=== PATIENT | female | born 1955 | race Caucasian/White ===

== ENCOUNTER 2018-09-12 09:20 | Emergency (ER) | payer MEDICARE, MEDICAID ==
[~2018-09-12] VITALS: Ht 165.1 cm; Wt 52.7 kg
[2018-09-12] MEDS ORDERED: HYDROmorphone 1 mg/ml syringe IM ONE (10:10)
[2018-09-12 10:23] LABS: CLARITY,URINE CLEAR (Clear); COLOR,URINE YELLOW (Yellow); GLUCOSE, URINE NEGATIVE (Neg); KETONES,URINE NEGATIVE (Neg); LEUKOCYTE ESTERASE ,URINE NEGATIVE (Neg); NITRITES, URINE NEGATIVE (Neg); OCCULT BLOOD,URINE SMALL (Neg); PH,URINE 5.5 (4.8-8.0); PROTEIN,URINE NEGATIVE (Neg); UROBILINOGEN,URINE 0.2 E.U/dL (0.2-1.0)
[2018-09-12 10:34] LABS: UA COLLECTION TYPE CLN CATCH MIDSTREAM
[2018-09-12 10:36] LABS: BACTERIA,URINE FEW /HPF (Neg); SQUAMOUS EPITHELIAL CELL,UR FEW /LPF (FEW); WBC,URINE 0-4 /HPF (0-4)
[2018-09-12] MEDS ORDERED: TRAM50TA2 PO (10:45)
[2018-09-12 10:53] VITALS: BP 115/73
== END 2018-09-12 10:58 | disposition home or self-care (01) ==
LOC: ER 09:22
DX: R10.31 Right lower quadrant pain (principal); G89.29 Other chronic pain; Z88.0 Allergy status to penicillin; Z88.2 Allergy status to sulfonamides; Z79.899 Other long term (current) drug therapy
CPT/HCPCS: 81001; 96372; 99283; J1170